=== PATIENT | female | born 1955 | race Caucasian/White ===

== ENCOUNTER → 2016-09-17 | Outpatient (CLI) | payer OTHER ==
[~2016-09-17] MED LIST: CYANOCOBAL1000 MCG/2 IM; CYTOTEC200 MCG PO; ERGOCALCIF50000 UNIT PO; LASIX40 MG PO; METOPROLOL TART25 MG PO; METOPROLOL TART50 MG PO; RAMIPRIL2.5 MG PO; SIMVASTATIN20 MG PO; TYLENOL EXTRA500 MG PO; XANAX0.25 MG PO
== END | disposition home or self-care (01) ==
LOC: CDC 11:48
DX: I51.7 Cardiomegaly (principal); R94.31 Abnormal electrocardiogram [ECG] [EKG]
CPT/HCPCS: 93000

== ENCOUNTER 2016-09-24 10:18 | Day surgery (SDC) | payer OTHER ==
[~2016-09-24] VITALS: Ht 157.5 cm; Wt 99.8 kg
[2016-09-24 11:03] VITALS: BP 128/77
[2016-09-24 14:52] VITALS: BP 121/69
[2016-09-24 16:00] VITALS: BP 137/71
[2016-09-24 16:40] VITALS: BP 134/75
== END 2016-09-24 16:40 | disposition home or self-care (01) ==
LOC: SDC
DX: N85.01 Benign endometrial hyperplasia (principal); N84.0 Polyp of corpus uteri; I10 Essential (primary) hypertension; G47.30 Sleep apnea, unspecified; F41.9 Anxiety disorder, unspecified; R94.31 Abnormal electrocardiogram [ECG] [EKG]; E78.5 Hyperlipidemia, unspecified; E66.01 Morbid (severe) obesity due to excess calories; Z68.41 Body mass index [BMI] 40.0-44.9, adult; F17.210 Nicotine dependence, cigarettes, uncomplicated; Z82.0 Family history of epilepsy and other diseases of the nervous system; Z81.8 Family history of other mental and behavioral disorders; Z80.9 Family history of malignant neoplasm, unspecified; Z82.49 Family history of ischemic heart disease and other diseases of the circulatory system; Z88.0 Allergy status to penicillin; Z79.899 Other long term (current) drug therapy
CPT/HCPCS: 88305; J0131; J1100; J1170; J1885; J2250; J2405; J2765; J3010

== ENCOUNTER 2016-12-12 01:26 | Emergency (ER) | payer OTHER ==
[~2016-12-12] VITALS: Ht 157.5 cm; Wt 103.6 kg
[2016-12-12] MEDS ORDERED: MEDROXYPROGESTE10 MG PO (01:59)
[2016-12-12 02:08] LABS: HEMATOCRIT 42.9 % (36.0-46.0); MCH 28.3 PG (29.0-34.0); MCHC 32.2 G/DL (30.0-36.0); MCV 87.9 FL (83-99); MEAN PLAT.VOLUME 11.4 uM^3 (9.5-12.4); PLATELET COUNT 252 K/uL (156-360); RBC DIS.WIDTH-CV 13.2 % (11.8-14.6); RBC DIS.WIDTH-SD 42.7 % (39-53); RED BLOOD COUNT 4.88 M/uL (3.80-5.20); WHITE BLOOD COUNT 15.1 K/uL (4.1-10.2)
[2016-12-12 02:22] LABS: ADD MIUA? YES; BILIRUBIN NEGATIVE; BLOOD MODERATE; COLOR YELLOW ((YELLOW)); GLUCOSE (STRIP) NEGATIVE; KETONES NEGATIVE; LEUKOCYTES NEGATIVE; NITRITE NEGATIVE; PROTEIN (STRIP) NEGATIVE; SPECIFIC GRAVITY 1.008 (1.000-1.030); UROBILINOGEN 0.2 MG/DL (0.2-1.0)
[2016-12-12 02:24] LABS: BACTERIA NONE SEEN /HPF; EPITHELIAL CELLS RARE /HPF; MUCUS NONE SEEN /LPF; RED BLOOD CELLS 0-5 /HPF (0-5); UCUL ADDED? NO; WHITE BLOOD CELLS 0-5 /HPF (0-5)
[2016-12-12 02:25] LABS: CHLORIDE 103 mEq/L (99-109); POTASSIUM 3.9 mEq/L (3.7-5.4); SODIUM 139 mEq/L (136-147)
[2016-12-12 02:28] LABS: GLUCOSE 108 mg/dL (70-99)
[2016-12-12 02:29] LABS: ANION GAP 12 MEQ/L (2-14)
[2016-12-12 02:30] LABS: TOTAL BILIRUBIN 0.3 mg/dL (0.0-1.0)
[2016-12-12 02:31] LABS: ALKALINE PHOSPHATASE 108 IU/L (3-129); GFR ESTIMATE (CALCULATED) > 59 mL/min/
[2016-12-12 02:33] LABS: UREA NITROGEN (BUN) 11 mg/dL (9-23)
[2016-12-12] MEDS ORDERED: PERCOCET 5/31 TABLET PO (05:05)
[2016-12-12 05:41] VITALS: BP 135/63
== END 2016-12-12 05:42 | disposition home or self-care (01) ==
LOC: EME 01:26
DX: N20.0 Calculus of kidney (principal)
CPT/HCPCS: 74177; 80053; 81003; 85027; 99281; 99285; J1885; J2270

== ENCOUNTER → 2017-07-06 | Outpatient (CLI) | payer OTHER ==
[~2017-07-06] MED LIST changes: +MEDROXYPROGESTE10 MG PO; +PERCOCET 5/31 TABLET PO
== END | disposition home or self-care (01) ==
LOC: CDC 10:25
DX: Z01.810 Encounter for preprocedural cardiovascular examination (principal); R94.31 Abnormal electrocardiogram [ECG] [EKG]
CPT/HCPCS: 93000

== ENCOUNTER 2017-07-09 09:16 | Day surgery (SDC) | payer OTHER ==
[~2017-07-09] VITALS: Ht 157.5 cm; Wt 103.4 kg
== END 2017-07-09 13:40 | disposition home or self-care (01) ==
LOC: SDC 09:16
DX: N85.00 Endometrial hyperplasia, unspecified (principal); R19.7 Diarrhea, unspecified; Z53.09 Procedure and treatment not carried out because of other contraindication

== ENCOUNTER 2017-08-03 08:15 | Day surgery (SDC) | payer OTHER ==
[~2017-08-03] VITALS: Ht 157.5 cm; Wt 103.6 kg
[2017-08-03 09:10] VITALS: BP 135/63
[2017-08-03 12:55] VITALS: BP 141/67
[2017-08-03 13:44] VITALS: BP 120/62
== END 2017-08-03 14:03 | disposition home or self-care (01) ==
LOC: SDC 08:15
DX: N85.00 Endometrial hyperplasia, unspecified (principal); N95.0 Postmenopausal bleeding; I10 Essential (primary) hypertension; F41.9 Anxiety disorder, unspecified; E78.5 Hyperlipidemia, unspecified; E66.01 Morbid (severe) obesity due to excess calories; Z68.41 Body mass index [BMI] 40.0-44.9, adult; G47.30 Sleep apnea, unspecified; F17.200 Nicotine dependence, unspecified, uncomplicated; Z88.0 Allergy status to penicillin
CPT/HCPCS: 80048; 85025; 88305; J0131; J1100; J1170; J1885; J2250; J2405; J3010